=== PATIENT | male | born 1950 | race African-American/Black ===

== ENCOUNTER 2019-06-10 12:38 | Outpatient (CLI) | payer OTHER, SELFPAY ==
--- NOTE | ~2019-06-10 | XR_ITS ---
EXAMINATION: CT abdomen pelvis wo con, XR abdomen/kub 1V DATE: 06/10/2019 13:15 INDICATION: Left lower quadrant abdominal pain TECHNIQUE: 1. Computed tomography (CT) of the abdomen and pelvis was performed without intravenous contrast. Aut omated exposure control and iterative reconstruction technique were employed. The dose-length product was 257.03 mGy-cm. 2. Supine AP view of the abdomen and pelvis was obtained on 2 images. COMPARISON: None FINDINGS: CT: Lung bases are clear. Heart size is normal. Atherosclerotic coronary artery calcification. Small slid ing-type hiatal hernia. Gallbladder is not visualized and likely surgically absent. Postoperative odette nges in the right upper quadrant including an anastomosis with suture line between the distal stomach and a loop of small bowel. And multiple sutures along the proximal colon. Liver, pancreas, bilateral adrenal glands and kidneys are normal. No evident urolithiasis or hydronephrosis. Small splenic calc ified consistent with old granulomatous disease. There are few scattered colonic diverticula. There i s inflammatory stranding surrounding a diverticulum at the mid descending colon consistent with acute diverticulitis. No bowel obstruction. No abscess or free intraperitoneal gas. The appendix is not vi sualized. No pericecal inflammatory change to suggest acute appendicitis. Surgical clips versus brach ytherapy seeds in the enlarged prostate. Penile implant with catheter extending to a reservoir in the left lower abdominal wall along the posterior margin of the left rectus abdominis muscle. Mild lumba r dextrocurvature. Mild scattered degenerative skeletal changes. KUB: Postoperative changes in the abdomen and pelvis as previously detailed. Nonobstructive bowel gas bob janine. Multiple phleboliths in the pelvis. IMPRESSION: 1. Radiographically uncomplicated diverticulitis along the mid descending colon. Reviewed, dictated and finalized at location A. IMPRESSION: 1. Radiographically uncomplicated diverticulitis along the mid descending colon .
== END 2019-06-10 12:39 | disposition home or self-care (01) ==
LOC: ANHIMG 12:44
PROVIDERS: PCP Internal Medicine; Visit Provider Nurse Practitioner Adult Health
DX: R10.32 Left lower quadrant pain (principal); K57.32 Diverticulitis of large intestine without perforation or abscess without bleeding
CPT/HCPCS: 74018; 74176